=== PATIENT | male | born 1985 | race Caucasian/White ===

== ENCOUNTER 2017-02-07 15:14 | Emergency (ER) | payer BC ==
[~2017-02-07] VITALS: Wt 746.2 kg
[2017-02-07] MEDS ORDERED: CLEOCIN HCL300 MG PO (15:36)
== END 2017-02-07 16:08 | disposition home or self-care (01) ==
LOC: ED 15:14
DX: S01.81XA Laceration without foreign body of other part of head, initial encounter (principal); X58.XXXA Exposure to other specified factors, initial encounter; Y93.89 Activity, other specified; Y92.9 Unspecified place or not applicable; Y99.9 Unspecified external cause status